=== PATIENT | female | born 1990 | race African-American/Black ===

== ENCOUNTER 2024-08-06 15:52 | Emergency (ER) | payer OTHER, SELFPAY ==
--- NOTE | ~2024-08-06 | US_ITS ---
EXAMINATION: US OB <= 14 weeks fetus INDICATION: vaginal bleeding, abdominal cramping TECHNIQUE: Sonography of the pelvis was performed by transabdominal and transvaginal techniques. COMPARISON: None. RESULT: Uterus: 7.7 x 4.3 x 4.7 cm. Anteverted. Homogenous myometrium. Normal endometrial stripe, measuring 8mm. Intrauterine gestational sac: Not seen. Right ovary: 3.0 x 1.3 x 1.5 cm. Vascular flow is present. No adnexal mass. Left ovary: Not visualized. No adnexal mass. Pelvis free fluid: Small volume free fluid is likely physiologic. IMPRESSION: No intrauterine gestational sac identified. of unknown location. Left ovary not visualized. No sonographic findings to suggest ectopic . Reviewed, dictated and finalized at location K.
[2024-08-06 16:27] VITALS: BP 121/90; PULSE 73; RESP 16; TEMP 36.7; O2SAT 100
--- NOTE | 2024-08-06 16:40 | ED.FEMALEGU ---
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 5 weeks preg <Nancy Flowers APRN - Last Filed: 08/06/24 19:40> Time Seen by Provider: 08/06/24 16:40 <Nancy Flowers APRN - Last Filed: 08/06/24 19:40> Focused HPI: Patient is a 34-year-old female who presents to the ER with concerns of abdominal pain and vaginal bleeding that started this morning. She reports she is approximately 5 weeks and has taken two tests at home. Patient reports her last menstrual period was July 08, 2024. She denies any medical history relevant this ER visit. Patient denies any recent fevers, urinary symptoms, or constipation. GENERAL: Well-appearing, well-nourished, and in no acute distress. HEAD: Normocephalic, atraumatic. CHEST: Clear to auscultation. ?No respiratory distress. HEART: Regular rate and rhythm.? NEURO: ?Alert and oriented x3. Patient screened in triage and initial orders placed.? ?Additional care and disposition to be based upon?diagnostic testing and treatment. <Nancy Flowers APRN - Last Filed: 08/06/24 19:40> History of Present Illness HPI Narrative: Patient is a 34-year-old female who presents emergency department with chief complaint of vaginal bleeding and abdominal cramping. The patient states that she is approximately 5 weeks with her last menstrual period being July 08 the patient states she had 2 home positive test reports that she has had bleeding that similar to whenever she has a period . <Bola Van MD - Last Filed: 08/06/24 20:55> Related Data Allergies/Adverse reactions: Allergies Allergy/AdvReac Type Severity Reaction Status Date / Time codeine Allergy Unknown Hives / Verified 08/06/24 15:53 Red Face <Nancy Flowers APRN - Last Filed: 08/06/24 19:40> Review of Systems Review of Systems: A 10 system review of systems was completed on the patient and is negative except for what is stated in the HPI. Nursing and ancillary documentation was reviewed. <Bola Van MD - Last Filed: 08/06/24 20:55> PMFSH Past Medical History Medical History: Medical History Vaginal discharge <Nancy Flowers APRN - Last Filed: 08/06/24 19:40> Family History Family History: Family History Mother Diabetes mellitus Hypertension Grandparent Diabetes mellitus Hypertension <Nancy Flowers APRN - Last Filed: 08/06/24 19:40> Social History Social History: Social History Smoking status: Never smoker Alcohol intake: current Alcohol use details: ocassional Substance use: never Do You Feel Safe in your Home?: Yes Lack of Food: Never True Current Housing: I Have Housing Concerned About Future Housing: No Difficulty Paying Gas/Electric Bills: No Difficulty Paying for Meds: No Currently Unemployed: No Education: Bachelor's Degree Difficulty w/ Childcare or Family Care: No Living arrangements: with family Occupation/Education: occupation Gender identity (if verbalized by the patient): Female Sexual Orientation (if Verbalized by the Patient): Straight or Heterosexual <Nancy Flowers, NADYA - Last Filed: 08/06/24 19:40> Exam Narrative: GENERAL: Well-appearing, well-nourished, and in no acute distress. HEAD: Normocephalic, atraumatic. EYES: PERRLA and EOMI. ENT: Nares clear, no rhinorrhea or epistaxis. Mucous membranes moist. NECK: Supple. CHEST: Clear to auscultation. No respiratory distress. HEART: Regular rate and rhythm. No murmur heard. Normal peripheral pulses. ABDOMEN: Soft, nontender, nondistended, normal active bowel sounds. EXTREMITIES: Normal range of motion. No edema. SKIN: Warm, dry, no rash. NEURO: No focal deficits. Alert and oriented x3. PSYCH: Normal mood and affect. <Bola Van MD - Last Filed: 08/06/24 20:55> Course Course Emergency Course: Differential <Bola Van MD - Last Filed: 08/06/24 20:55> Vital Signs Vital signs: Vital Signs Temperature 36.7 C 08/06/24 16:27 Pulse Rate 73 08/06/24 16:27 Respiratory Rate 16 08/06/24 16:27 Blood Pressure 121/90 08/06/24 16:27 Pulse Oximetry 100 08/06/24 16:27 Oxygen Delivery Room Air 08/06/24 16:27 Temperature 36.7 C 08/06/24 16:27 Pulse Rate 73 08/06/24 16:27 Respiratory Rate 16 08/06/24 16:27 Blood Pressure 121/90 08/06/24 16:27 Pulse Oximetry 100 08/06/24 16:27 Oxygen Delivery Room Air 08/06/24 16:27 <Nancy Flowers APRN - Last Filed: 08/06/24 19:40> Vital Signs Temperature 36.7 C 08/06/24 16:27 Pulse Rate 73 08/06/24 16:27 Respiratory Rate 16 08/06/24 16:27 Blood Pressure 121/90 08/06/24 16:27 Pulse Oximetry 100 08/06/24 16:27 Oxygen Delivery Room Air 08/06/24 16:27 Temperature 36.7 C 08/06/24 16:27 Pulse Rate 73 08/06/24 16:27 Respiratory Rate 16 08/06/24 16:27 Blood Pressure 121/90 08/06/24 16:27 Pulse Oximetry 100 08/06/24 16:27 Oxygen Delivery Room Air 08/06/24 16:27 <Bola Van MD - Last Filed: 08/06/24 20:55> MDM - Female Genitourinary MDM Narrative Medical decision making narrative: Differential diagnosis includes threatened miscarriage, incomplete miscarriage, ectopic Laboratory studies were obtained on the patient showed a quantitative hCG of 6.56 this is fairly positive the patient is Rh positive with a O-positive blood type. Ultrasound showed no intrauterine . For the patient's quantitative hCG is extremely low at this time. The patient will be instructed to follow-up with her OBGYN in the next 48 hours for repeat hCG <Bola Van MD - Last Filed: 08/06/24 20:55> Lab Data Result diagrams: 08/06/24 18:03 08/06/24 18:03 <Nancy Flowers, POWER[employer] CONTROL SYSTEMS ENGINEER - Last Filed: 08/06/24 19:40> Labs: Lab Results 08/06/24 08/06/24 08/06/24 Range/Units 18:03 19:37 19:48 WBC 4.6 (4.5-10.0) K/mm3 RBC 4.81 (4.2-5.4) M/mm3 Hgb 11.5 L (12.0-15.0) g/dL Hct 37.7 (37.0-47.0) % MCV 78.4 L (80-100) fl MCH 23.9 L (26-34) pg MCHC 30.5 L (32-36) g/dl RDW 16.4 H (11.5-14.5) % Plt Count 222 (150-375) k/mm3 MPV 10.8 H (7.4-10.4) fl Immature Gran % (Auto) 0.4 (0-0.5) % Neut % (Auto) 45.8 (45.5-73.1) % Lymph % (Auto) 39.5 (18.3-44.2) % Rich % (Auto) 12.7 H (2.6-8.5) % Eos % (Auto) 0.9 (0-4.4) % Baso % (Auto) 0.7 (0.2-1.2) % Lymph # (Auto) 1.81 (0.9-3.2) K/mm3 Rich # (Auto) 0.6 (0.1-0.6) K/mm3 Eos # (Auto) 0.0 (0-0.3) K/mm3 Baso # (Auto) 0.0 (0.0-0.1) K/mm3 Abs Immat Gran (auto) 0.02 (0.00-0.031) K/mm3 Absolute Neuts (auto) 2.1 (1.3-6.7) K/mm3 Absolute Nucleated RBC 0.000 (0.0-0.012) K/mm3 Nucleated RBC % 0.0 (0.0-0.2) % Sodium 139 (137-145) mmol/L Potassium 4.1 (3.4-5.0) mmol/L Chloride 105 (98-107) mmol/L Carbon Dioxide 22 (22-30) mmol/L Anion Gap 12 (4-12) mmol/L BUN 12 (7-17) mg/dL Creatinine 0.88 (0.7-1.0) mg/dL Estim Creat Clear Calc 75 ml/min Estimated GFR > 60 (59 - ) Glucose 88 (65-110) mg/dL Calcium 9.0 (8.4-10.2) mg/dL Total Bilirubin 0.5 (0.2-1.3) mg/dL AST 26 (14-36) U/L ALT 20 (6-35) U/L Alkaline Phosphatase 56 (38-126) U/L Total Protein 8.0 (6.3-8.2) g/dL Albumin 4.6 (3.5-5.1) g/dL Beta HCG, Quant 6.56 mIU/ML Urine Color Yellow (Yellow) Urine Appearance Clear (Clear) Urine pH 6.0 (5.0-9.0) Ur Specific Porter 1.007 (1.001-1.035) Urine Protein Negative (Negative) mg/dL Urine Glucose (UA) Negative (Negative) mg/dL Urine Ketones Negative (Negative) mg/dL Ur Blood (Man) Trace (Negative) Urine Nitrate Negative (Negative) Urine Bilirubin Negative (Negative) Urine Urobilinogen 0.2 (<2.0) mg/dL Leukocyte Esterase Rfl Negative (Negative) RAYMUNDO/UL Urine RBC 0-2 (0-2) /hpf Urine WBC 0-5 (0-3) /hpf Ur Squamous Epith Cells None seen (Few) /hpf Urine Bacteria 1+ H /hpf Urine Casts 0-2 Blood Type O Positive Antibody Screen Pending Screen Pending Baby's Blood Type Pending Baby's KIA Pending Doses of RhIg Required Pending <Nancy Flowers, [employer] SYSTEMS ENGINEER - Last Filed: 08/06/24 19:40> Lab Results 08/06/24 08/06/24 08/06/24 Range/Units 18:03 19:37 19:48 WBC 4.6 (4.5-10.0) K/mm3 RBC 4.81 (4.2-5.4) M/mm3 Hgb 11.5 L (12.0-15.0) g/dL Hct 37.7 (37.0-47.0) % MCV 78.4 L (80-100) fl MCH 23.9 L (26-34) pg MCHC 30.5 L (32-36) g/dl RDW 16.4 H (11.5-14.5) % Plt Count 222 (150-375) k/mm3 MPV 10.8 H (7.4-10.4) fl Immature Gran % (Auto) 0.4 (0-0.5) % Neut % (Auto) 45.8 (45.5-73.1) % Lymph % (Auto) 39.5 (18.3-44.2) % Rich % (Auto) 12.7 H (2.6-8.5) % Eos % (Auto) 0.9 (0-4.4) % Baso % (Auto) 0.7 (0.2-1.2) % Lymph # (Auto) 1.81 (0.9-3.2) K/mm3 Rich # (Auto) 0.6 (0.1-0.6) K/mm3 Eos # (Auto) 0.0 (0-0.3) K/mm3 Baso # (Auto) 0.0 (0.0-0.1) K/mm3 Abs Immat Gran (auto) 0.02 (0.00-0.031) K/mm3 Absolute Neuts (auto) 2.1 (1.3-6.7) K/mm3 Absolute Nucleated RBC 0.000 (0.0-0.012) K/mm3 Nucleated RBC % 0.0 (0.0-0.2) % Sodium 139 (137-145) mmol/L Potassium 4.1 (3.4-5.0) mmol/L Chloride 105 (98-107) mmol/L Carbon Dioxide 22 (22-30) mmol/L Anion Gap 12 (4-12) mmol/L BUN 12 (7-17) mg/dL Creatinine 0.88 (0.7-1.0) mg/dL Estim Creat Clear Calc 75 ml/min Estimated GFR > 60 (59 - ) Glucose 88 (65-110) mg/dL Calcium 9.0 (8.4-10.2) mg/dL Total Bilirubin 0.5 (0.2-1.3) mg/dL AST 26 (14-36) U/L ALT 20 (6-35) U/L Alkaline Phosphatase 56 (38-126) U/L Total Protein 8.0 (6.3-8.2) g/dL Albumin 4.6 (3.5-5.1) g/dL Beta HCG, Quant 6.56 mIU/ML Urine Color Yellow (Yellow) Urine Appearance Clear (Clear) Urine pH 6.0 (5.0-9.0) Ur Specific Porter 1.007 (1.001-1.035) Urine Protein Negative (Negative) mg/dL Urine Glucose (UA) Negative (Negative) mg/dL Urine Ketones Negative (Negative) mg/dL Ur Blood (Man) Trace (Negative) Urine Nitrate Negative (Negative) Urine Bilirubin Negative (Negative) Urine Urobilinogen 0.2 (<2.0) mg/dL Leukocyte Esterase Rfl Negative (Negative) RAYMUNDO/UL Urine RBC 0-2 (0-2) /hpf Urine WBC 0-5 (0-3) /hpf Ur Squamous Epith Cells None seen (Few) /hpf Urine Bacteria 1+ H /hpf Urine Casts 0-2 Blood Type O Positive Antibody Screen Pending Screen Pending Baby's Blood Type Pending Baby's KIA Pending Doses of RhIg Required Pending <Bola Van MD - Last Filed: 08/06/24 20:55> Discharge Plan Discharge Clinical Impression: Threatened miscarriage <Nancy Flowers APRN - Last Filed: 08/06/24 19:40> Patient Disposition: Home <Nancy Flowers APRN - Last Filed: 08/06/24 19:40> Condition: Stable <Nancy Flowers APRN - Last Filed: 08/06/24 19:40> Instructions: Antibiotic Form, Threatened Miscarriage (ED) <Nancy Flowers APRN - Last Filed: 08/06/24 19:40> Additional Instructions: Please contact your OBGYN in the morning. You will need a repeat blood test (hCG). Your quantitative test today is 6.56 this is extremely low and could be signs that your miscarrying or could be extremely early Your blood type is O positive <Nancy Flowers APRN - Last Filed: 08/06/24 19:40> Patient Language: Beninese <Nancy Flowers APRN - Last Filed: 08/06/24 19:40> Prescriptions: No Action metronidazole 500 mg tablet 500 mg PO Q12H Qty: 14 0RF <Nancy Flowers APRN - Last Filed: 08/06/24 19:40> Follow-up/Referrals: PHYSICIAN,GEOGRAPHIC INFORMATION SCIENTIST [Primary Care Provider] - <Nancy Flowers APRN - Last Filed: 08/06/24 19:40> Time of Disposition: 20:55 <Nancy Flowers APRN - Last Filed: 08/06/24 19:40> 20:55 <Bola Van MD - Last Filed: 08/06/24 20:55>
[2024-08-06 18:11] LABS: Basophils Percent Auto 0.7 % (0.2-1.2); Eosinophils Percent Auto 0.9 % (0-4.4); Hematocrit 37.7 % (37.0-47.0); Hemoglobin 11.5 g/dL (12.0-15.0); Immature Granulocyte Absolute 0.02 K/mm3 (0.00-0.031); Immature Granulocyte Percent A 0.4 % (0-0.5); Lymphocytes Absolute Auto 1.81 K/mm3 (0.9-3.2); Lymphocytes Percent Auto 39.5 % (18.3-44.2); Mean Corpuscular HGB Conc 30.5 g/dl (32-36); Mean Corpuscular Hemoglobin 23.9 pg (26-34); Mean Corpuscular Volume 78.4 fl (80-100); Mean Platelet Volume 10.8 fl (7.4-10.4); Monocytes Absolute Auto 0.6 K/mm3 (0.1-0.6); Monocytes Percent Auto 12.7 % (2.6-8.5); Neutrophils Absolute Auto 2.1 K/mm3 (1.3-6.7); Neutrophils Percent Auto 45.8 % (45.5-73.1); Platelet Count Result 222 k/mm3 (150-375); Red Blood Count 4.81 M/mm3 (4.2-5.4); Red Cell Distribution Width 16.4 % (11.5-14.5); White Blood Count 4.6 K/mm3 (4.5-10.0)
[2024-08-06 18:21] LABS: Alanine Aminotransferase 20 U/L (6-35); Albumin Level 4.6 g/dL (3.5-5.1); Alkaline Phosphatase 56 U/L (38-126); Anion Gap 12 mmol/L (4-12); Aspartate Amino Transferase 26 U/L (14-36); Bilirubin,Total 0.5 mg/dL (0.2-1.3); Blood Urea Nitrogen 12 mg/dL (7-17); Carbon Dioxide 22 mmol/L (22-30); Chloride 105 mmol/L (98-107); Estimated CRCL calculation 75 ml/min; Estimated Glomerular Filt Rate > 60; Glucose 88 mg/dL (65-110); Potassium 4.1 mmol/L (3.4-5.0); Sodium 139 mmol/L (137-145)
[2024-08-06 18:38] LABS: Beta HCG Quantitative 6.56 mIU/ML
[2024-08-06 19:54] LABS: Add Urine Microscopic? YES; Appearance Urine Clear (Clear); Bacteria Urine 1+ /hpf; Bilirubin Urine Negative (Negative); Blood Urine Trace (Negative); Color Urine Yellow (Yellow); Glucose Urine UA Negative (Negative); Ketones Urine Negative (Negative); Leukocyte Esterase Ur Negative LEU/UL (Negative); Nitrate Urine Negative (Negative); Non Pathogenic Casts 0-2; Protein Urine Negative (Negative); RBC Urine 0-2 /hpf (0-2); Specific Grav Ur 1.007 (1.001-1.035); Squamous Epithelial Cell Urine None Seen /hpf (Few); Urobilinogen Urine 0.2 mg/dL (<2.0); WBC Urine 0-5 /hpf (0-3)
== END 2024-08-06 21:10 | disposition home or self-care (01) ==
LOC: ANHED 20:58
PROVIDERS: Registered Nurse; Emergency Provider Emergency Medicine
DX: O20.0 Threatened abortion (principal)
CPT/HCPCS: 36415; 76801; 80053; 81001; 84702; 85025; 85461; 86850; 86900; 86901; 99284

== ENCOUNTER 2024-08-08 16:15 | Outpatient (CLI) | payer OTHER, SELFPAY ==
[2024-08-08 17:54] LABS: Beta HCG Quantitative < 2.39 mIU/ML
== END 2024-08-08 16:16 | disposition home or self-care (01) ==
LOC: ANHLAB 16:21
PROVIDERS: Visit Provider Student in an Organized Health Care Education/Training Program
DX: O20.0 Threatened abortion (principal); Z3A.00 Weeks of gestation of pregnancy not specified
CPT/HCPCS: 36415; 84702

== ENCOUNTER 2025-02-22 14:42 | Outpatient (CLI) | payer OTHER, SELFPAY ==
[2025-02-22 15:58] LABS: Hematocrit 38.8 % (37.0-47.0); Hemoglobin 12.2 g/dL (12.0-15.0); Mean Corpuscular HGB Conc 31.4 g/dl (32-36); Mean Corpuscular Hemoglobin 24.5 pg (26-34); Mean Corpuscular Volume 78.1 fl (80-100); Platelet Count Result 191 k/mm3 (150-375); Red Blood Count 4.97 M/mm3 (4.2-5.4); White Blood Count 5.6 K/mm3 (4.5-10.0)
[2025-02-22 16:41] LABS: Hepatitis B Surface Antigen Negative (Negative)
[2025-02-22 16:52] LABS: HIV 1/2 Ab P24 Ag Result Negative (Negative)
[2025-02-22 16:57] LABS: Beta HCG Quantitative 144600.00 mIU/ML
[2025-02-23 07:09] LABS: Cytomegalovirus (CMV) Ab, IgG <0.60 U/mL (0.00-0.59); Varicella-Zoster Ab, IgG Reactive (Non Reactive)
[2025-02-26 11:08] LABS: Parvovirus B19, IgG 0.1 index (0.0-0.8); Parvovirus B19, IgM 0.2 index (0.0-0.8)
== END 2025-02-22 14:43 | disposition home or self-care (01) ==
LOC: ANHLAB 14:56
PROVIDERS: Visit Provider Student in an Organized Health Care Education/Training Program
DX: N91.2 Amenorrhea, unspecified (principal)
CPT/HCPCS: 36415; 84702; 85027; 85660; 86644; 86703; 86747; 86762; 86787; 86850; 86900; 86901; 87077; 87086; 87186; 87340; G0432